=== PATIENT | female | born 1985 | race Caucasian/White ===

== ENCOUNTER → 2018-01-13 | Outpatient (CLI) | payer OTHER ==
--- NOTE | 2018-02-05 12:10 | SLEEP ---
[address] [address] SLEEP STUDY REPORT Name: CURT YING Room: [facility]#: [id number] Admission: 01/13/18 Attend Phys: Reno Gonzalez MD Discharge: Date of : 81 Report #: [id number] THIS REPORT FOR: //name// CC: Reno Gonzalez MD This study has been reviewed in its entirety by a board certified sleep specialist DATE OF SERVICE: 01/13/2018 REPORT DATE: 02/04/2018. ATTENDING PHYSICIAN: Reno Gonzalez MD. The patient is a 32-year-old female with very loud snoring, restless sleep. She is not on any oxygen at home. Split night sleep study to evaluate for obstructive sleep apnea. Overnight polysomnography was performed with split night study. She had a total sleep time of 6 hours. Stage I 26 minutes, 7%; stage N2 271 minutes, 75%; stage N3 7%. Stage REM was 36 minutes or 10%. The patient had no O2 desaturation below 90% throughout the study. No EKG abnormalities were noted. Mild increase in limb movements were noted. The PLMS arousal index was normal at 2.3; 31 hypopneas and 2 apneas were noted. Apnea-hypopnea index was 5.5 events total consistent with mild sleep disordered breathing. She did not qualify early enough for events for split night study. She did achieve REM sleep. IMPRESSION: Abnormalities suggest mild obstructive sleep apnea, mixed with very loud snoring. Empiric trial with CPAP with an auto titration from 5-15 cm with a full facemask may be effective. If considered, the patient may have a CPAP titration study in the lab again. No complications to the above procedure. <ELECTRONICALLY SIGNED> By: Nikos Plunkett MD 02/05/18 1210 [id number] [id number] Plunkett MD /nt
== END ==
LOC: M.SLEEPLAB 21:00
DX: G47.33 Obstructive sleep apnea (adult) (pediatric) (principal)